=== PATIENT | male | born 1970 | race African-American/Black ===

== ENCOUNTER 2017-03-16 09:48 | Emergency (ER) | payer MEDICAID, OTHER ==
[~2017-03-16] VITALS: Ht 180.3 cm; Wt 90.0 kg
[~2017-03-16 09:48] MED LIST: OLAN10TA3 PO
[2017-03-16] MEDS ORDERED: OLAN10TA3 PO (09:55)
[2017-03-16] MEDS ORDERED: ZOLP10 PO (09:55)
[2017-03-16] MEDS ORDERED: PARO20TA24 PO (09:55)
[2017-03-16] MEDS ORDERED: QUET25TA PO (09:55)
[2017-03-16 11:09] VITALS: BP 125/80
[2017-03-16] MEDS ORDERED: AMOX TR/POT CLAV 875 MG/125 MG TABLET PO ONE (11:15)
== END 2017-03-16 11:39 | disposition home or self-care (01) ==
LOC: EMS 09:49
DX: L03.211 Cellulitis of face (principal); I10 Essential (primary) hypertension; E78.00 Pure hypercholesterolemia, unspecified; F17.210 Nicotine dependence, cigarettes, uncomplicated; F12.90 Cannabis use, unspecified, uncomplicated
CPT/HCPCS: 99282; 99283